=== PATIENT | female | born 1990 | race African-American/Black ===

== ENCOUNTER 2016-04-10 03:57 | Emergency (ER) | payer OTHER ==
[~2016-04-10] VITALS: Ht 170.2 cm; Wt 97.5 kg
[2016-04-10] MEDS ORDERED: IV NS 0.9% 1,000 ML BAG IV ONE (04:30)
[2016-04-10] MEDS ORDERED: IV NS 0.9% 1,000 ML ONE (04:41)
[2016-04-10] MEDS ORDERED: IV SET PRIMARY 1 EA INFUS.SET MC ONE (04:41)
[2016-04-10 05:43] VITALS: BP 126/84
== END 2016-04-10 05:44 | disposition home or self-care (01) ==
LOC: ER 04:06
DX: F12.10 Cannabis abuse, uncomplicated (principal); E28.2 Polycystic ovarian syndrome; F41.9 Anxiety disorder, unspecified; F42.9 Obsessive-compulsive disorder, unspecified; Z90.89 Acquired absence of other organs
CPT/HCPCS: 96360; 99284; A4606; J7030; Z7610